=== PATIENT | female | born 1945 | race Caucasian/White ===

== ENCOUNTER → 2017-06-09 | Outpatient (CLI) | payer MEDICARE | END | disposition home or self-care (01) | LOC: CVU 13:12 | PROVIDERS: ATTEND Internal Medicine Cardiovascular Disease | DX: I65.23 Occlusion and stenosis of bilateral carotid arteries (principal) | CPT/HCPCS: 93880 ==

== ENCOUNTER → 2018-06-07 | Outpatient (CLI) | payer MEDICARE | END | disposition home or self-care (01) | LOC: CVU 08:45 | PROVIDERS: ATTEND Internal Medicine Cardiovascular Disease | DX: I65.23 Occlusion and stenosis of bilateral carotid arteries (principal); I65.8 Occlusion and stenosis of other precerebral arteries; Z85.3 Personal history of malignant neoplasm of breast | CPT/HCPCS: 93880 ==

== ENCOUNTER 2019-06-15 09:17 | Outpatient (CLI) | payer MEDICARE | END 2019-06-15 23:59 | disposition home or self-care (01) | LOC: CVU 09:17 | PROVIDERS: ATTEND Internal Medicine Cardiovascular Disease | DX: I65.23 Occlusion and stenosis of bilateral carotid arteries (principal); I65.8 Occlusion and stenosis of other precerebral arteries | CPT/HCPCS: 93880 ==

== ENCOUNTER → 2020-01-31 | Outpatient (CLI) | payer MEDICARE ==
[~2020-01-31] MED LIST: ALPHALIPOIC ACID PO; CALC1CAP8 PO; CETI10TA26 PO; CHOL10003 PO; CLON0.25 PO; CYAN25009 PO; DENO60DI INJ; ESTRIOL; GABA600T7 PO; LACT1CAP37 PO; LANS30CA60 PO; LEVO75TA PO; Magnesium PO; OMEG1CAP23 PO; POLY17PO5 PO; SIMV20TA19 PO; UBID100C24 PO
== END | disposition home or self-care (01) ==
LOC: STAR 11:13
PROVIDERS: ATTEND Surgery Vascular Surgery
DX: Z01.818 Encounter for other preprocedural examination (principal); K40.90 Unilateral inguinal hernia, without obstruction or gangrene, not specified as recurrent; R00.0 Tachycardia, unspecified
CPT/HCPCS: 93005

== ENCOUNTER → 2020-05-16 | Outpatient (CLI) | payer MEDICARE | END | disposition home or self-care (01) | LOC: STAR 09:49 | PROVIDERS: ATTEND Surgery Vascular Surgery | DX: Z01.818 Encounter for other preprocedural examination (principal); I21.29 ST elevation (STEMI) myocardial infarction involving other sites; R94.31 Abnormal electrocardiogram [ECG] [EKG] | CPT/HCPCS: 93005 ==

== ENCOUNTER 2020-05-21 07:27 | Day surgery (SDC) | payer MEDICARE ==
[~2020-05-21] VITALS: Ht 157.5 cm; Wt 51.2 kg
[~2020-05-21 07:27] MED LIST changes: +BACITRACIN 50,000 UNIT ONE; +BUPIVACAINE/PF-EPI 0.5% 1:200K ONE; -CETI10TA26 PO; +CETI10TA76 PO
[2020-05-21] MEDS ORDERED: LACTATED RINGERS 1,000 ML IV SCH (07:55)
[2020-05-21] MEDS ORDERED: CHLORHEXIDINE 15 ML UDC MM ONE (08:00)
[2020-05-21] MEDS ORDERED: CHLORHEXIDINE 15 ML UDC ONE (08:12)
[2020-05-21] MEDS ORDERED: FENTANYL PF 100 MCG/2ML ONE (09:19)
[2020-05-21] MEDS ORDERED: LIDOCAINE-MPF 2% ,5ML ONE (09:22)
[2020-05-21] MEDS ORDERED: PROMETHAZINE 25 MG/ML, 1ML IVPush PRN (10:00)
[2020-05-21] MEDS ORDERED: PROMETHAZINE 25 MG SUPP PR PRN (10:00)
[2020-05-21] MEDS ORDERED: DIAZEPAM 5 MG/ML, 2ML IVPush PRN (10:00)
[2020-05-21] MEDS ORDERED: FENTANYL PF 100 MCG/2ML IV PRN (10:00)
[2020-05-21] MEDS ORDERED: LABETALOL 5MG/ML, 20ML IV PRN (10:00)
[2020-05-21] MEDS ORDERED: OXYcodone 5 MG/5 ML ORAL.SOL UDC PO PRN (10:00)
[2020-05-21] MEDS ORDERED: ACETAMINOPHEN 325 MG TABLET PO PRN (10:00)
[2020-05-21] MEDS ORDERED: HYDROmorphone 1 MG/ML, 1ML INJ IVPush PRN (10:00)
[2020-05-21] MEDS ORDERED: hydrALAzine 20 MG/ML, 1ML IV PRN (10:00)
[2020-05-21] MEDS ORDERED: ONDANSETRON 2MG/ML, 2ML IVPush PRN (10:00)
[2020-05-21] MEDS ORDERED: LORazepam 2 MG/ML, 1ML IVPush PRN (10:00)
[2020-05-21] MEDS ORDERED: CEFAZOLIN 1,000 MG ONE (10:18)
[2020-05-21] MEDS ORDERED: DEXAMETHASONE 4 MG/ML, 1ML ONE (10:18)
[2020-05-21] MEDS ORDERED: NEOSTIGMINE 1 MG/ML, 10ML ONE (10:18)
[2020-05-21] MEDS ORDERED: PROPOFOL 10 MG/ML, 20ML ONE (10:18)
[2020-05-21] MEDS ORDERED: GLYCOPYRROLATE 0.2MG/1ML, 5ML ONE (10:18)
[2020-05-21] MEDS ORDERED: ONDANSETRON 2MG/ML, 2ML ONE ×2 (10:18→10:26)
[2020-05-21] MEDS ORDERED: SUCCINYLCHOLINE 20 MG/ML, 10ML ONE (10:18)
[2020-05-21] MEDS ORDERED: ROCURONIUM 10MG/ML,5ML ONE (10:18)
== END 2020-05-21 12:40 | disposition home or self-care (01) ==
LOC: OR 07:27
PROVIDERS: ATTEND Surgery Vascular Surgery
DX: K41.90 Unilateral femoral hernia, without obstruction or gangrene, not specified as recurrent (principal); Z11.59 Encounter for screening for other viral diseases; K21.9 Gastro-esophageal reflux disease without esophagitis; E78.5 Hyperlipidemia, unspecified; I10 Essential (primary) hypertension; E03.9 Hypothyroidism, unspecified; M81.0 Age-related osteoporosis without current pathological fracture; Z79.890 Hormone replacement therapy; Z79.899 Other long term (current) drug therapy; Z85.3 Personal history of malignant neoplasm of breast; Z87.891 Personal history of nicotine dependence; Z88.7 Allergy status to serum and vaccine; Z91.048 Other nonmedicinal substance allergy status; Z98.51 Tubal ligation status; Z98.890 Other specified postprocedural states; Z83.2 Family history of diseases of the blood and blood-forming organs and certain disorders involving the immune mechanism
CPT/HCPCS: 36415; 49550; 87635; C1781; J0690; J1100; J2405; J2704; J3010; J7120; J2710; J0330

== ENCOUNTER 2020-06-18 12:07 | Outpatient (CLI) | payer MEDICARE ==
[~2020-06-18 12:07] MED LIST changes: -BACITRACIN 50,000 UNIT ONE; -BUPIVACAINE/PF-EPI 0.5% 1:200K ONE
== END 2020-06-18 23:59 | disposition home or self-care (01) ==
LOC: CVU 12:07
PROVIDERS: ATTEND Internal Medicine Cardiovascular Disease
DX: I65.23 Occlusion and stenosis of bilateral carotid arteries (principal); I65.8 Occlusion and stenosis of other precerebral arteries
CPT/HCPCS: 93880

== ENCOUNTER → 2021-06-03 | Outpatient (CLI) | payer MEDICARE ==
[~2021-06-03] MED LIST changes: -LACT1CAP37 PO; +LACT1CAP47 PO
== END | disposition home or self-care (01) ==
LOC: CVU 12:33
PROVIDERS: ATTEND Internal Medicine Cardiovascular Disease
DX: I65.23 Occlusion and stenosis of bilateral carotid arteries (principal); I65.8 Occlusion and stenosis of other precerebral arteries
CPT/HCPCS: 93880